=== PATIENT | male | born 2000 | race Caucasian/White ===

== ENCOUNTER 2020-06-05 10:35 | Emergency (ER) | payer MEDICAID ==
[~2020-06-05] VITALS: Ht 167.6 cm; Wt 63.9 kg
--- NOTE | 2020-06-05 12:05 | NUR ---
REPORT TO PRIMARY RN SUREKHA
--- NOTE | 2020-06-05 12:15 | NUR ---
KERMIT Keene at bedside.
[2020-06-05] MEDS ORDERED: LIDOcaine 5% patch TP STA (12:20)
[2020-06-05] MEDS ORDERED: ketorolac tromethamine 15mg/ml inj. IM ONE (12:20)
[2020-06-05] MEDS ORDERED: IBUP-1984 PO (13:03)
[2020-06-05] MEDS ORDERED: LIDO700A32 TOP (13:03)
[2020-06-05 13:08] VITALS: BP 125/78
== END 2020-06-05 13:11 | disposition home or self-care (01) ==
LOC: ER 10:36
DX: M54.5 Low back pain (principal); Z79.899 Other long term (current) drug therapy; W01.0XXA Fall on same level from slipping, tripping and stumbling without subsequent striking against object, initial encounter; Y93.39 Activity, other involving climbing, rappelling and jumping off; Y92.89 Other specified places as the place of occurrence of the external cause; Y99.8 Other external cause status
CPT/HCPCS: 72100; 96372; 99284; J1885